=== PATIENT | male | born 1960 | race Hispanic/Latino ===

== ENCOUNTER 2020-09-22 12:27 | Inpatient (IN) | payer SELFPAY ==
[2020-09-22 12:59] LABS: #Lymphocytes 1.1 thou/uL (1.20-3.40); #Monocytes 0.5 thou/uL (0.11-0.59); #Neutrophils 10.3 thou/uL (1.40-6.50); %Basophils 0.2 % (0.0-1.0); %Eosinophils 0.4 % (0.0-10.0); %Lymphocytes 9.1 % (21.0-51.0); %Monocytes 4.3 % (0.0-10.0); Hemoglobin 11.7 g/dL (14.0-18.0); Mean Corpuscular HGB CONC 34.9 g/dL (32.0-36.0); Mean Corpuscular Hemoglobin 30.3 pg (27.0-31.0); Mean Corpuscular Volume 86.8 fL (78.0-98.0); Mean Platelet Volume 9.4 fL (7.4-10.4); Platelet Count 179 thou/uL (130-400); RBC Distribution Width 13.2 % (11.5-14.5); Red Blood Cell (RBC) Count 3.84 mill/uL (4.70-6.10)
[2020-09-22 13:19] LABS: ALT (SGPT) 24 U/L (8-55); AST (SGOT) 19 U/L (5-34); Albumin 4.3 g/dL (3.5-5.0); Alkaline Phosphatase 267 U/L (40-110); Anion Gap 17 mmol/L (10-20); BUN (Urea Nitrogen) 25 mg/dL (8.4-25.7); Bilirubin, Total 0.9 mg/dL (0.2-1.2); Calc. Creatinine Clearance 0 mL/min (70-130); Calcium 9.9 mg/dL (7.8-10.44); Carbon Dioxide 24 mmol/L (22-29); Chloride 95 mmol/L (98-107); Globulin 3.7 g/dL (2.4-3.5); Potassium 4.4 mmol/L (3.5-5.1); Sodium 132 mmol/L (136-145)
[2020-09-22 13:26] LABS: Glucose 656 mg/dL (70-105)
[2020-09-22 13:32] LABS: Bacteria/HPF 4+ HPF (None Seen); Bilirubin Negative (Negative); Blood, Urine 2+ (Negative); Clarity Turbid (Clear); Glucose, Urine (Dipstick) Greater than 1000 mg/dL (Negative); Ketone, Urine Negative (Negative); Leukocyte 500 Leu/uL (Negative); Nitrite Negative (Negative); Protein, Urine (Dipstick) 20 mg/dL (Neg-Trace); RBC/HPF 21-50 HPF (0-3); Specific Gravity, Urine 1.024 (1.002-1.036); Squamous Epithelial 0-3 HPF (0-3); Urobilinogen Normal mg/dL (Less than 2); WBC/HPF Greater than 50 HPF (0-3)
[2020-09-22 13:51] LABS: Actual Bicarbonate (HCO3v) 26 mEq/L (22-28); Base Excess 0.8 mEq/L (-2.0 to +3.0); Calcium, Ionized (venous) 1.13 mmol/L (1.16-1.32); Chloride (VBG) 95 mmol/L (98-106); Hemoglobin (Hb) 11.8 g/dL (13.1-17.2); Potassium (VBG) 4.29 mmol/L (3.70-5.30); Sodium 131.8 mmol/L (133-146); pH (venous) 7.41 (7.32-7.43)
[2020-09-22] MEDS ORDERED: cefTRIAXone\\ROCEPHIN 2 GM VIAL ONE (14:07)
[2020-09-22] MEDS ORDERED: Dextrose 5% in Water 1,000 ML IV PRN (15:44)
[2020-09-22] MEDS ORDERED: Dextrose 50% Abboject 50 ML SYRINGE SLOW IVP PRN (15:44)
[2020-09-22] MEDS ORDERED: Acetaminophen 325 MG TAB PO PRN (15:46)
[2020-09-22] MEDS ORDERED: Ondansetron PF 4 MG/2 ML Vial IVP PRN (15:46)
[2020-09-22] MEDS ORDERED: Ondansetron ODT 4 MG TAB PO PRN (15:46)
[2020-09-22] MEDS ORDERED: Senokot S 8.6-50 MG TAB PO PRN (15:46)
[2020-09-22] MEDS ORDERED: Calcium Carbonate 500 MG ChewTAB PO PRN (15:46)
[2020-09-22 16:20] LABS: Hemoglobin A1c 10.2 % (4.0-6.0)
[2020-09-22 16:39] LABS: Troponin I Less than 0.010 ng/mL (< 0.028)
[2020-09-22] MEDS ORDERED: Lantus 1000 UNITS/10 ML VIAL SC SCH (17:00)
[2020-09-22] MEDS: Sodium Chloride 0.9% 1,000 ML IV SCH ×2 (17:01→23:26)
[2020-09-22] MEDS: glipiZIDE 5 MG TAB PO SCH (17:02)
[2020-09-22 18:40] VITALS: BMI 32.5
[2020-09-22] MEDS: Insulin Regular 300 UNITS/3 ML VIAL SC PRN ×2 (20:40→23:25)
[2020-09-22] MEDS: Atorvastatin Calcium 40 MG TAB PO SCH (20:41)
[2020-09-23] MEDS: Insulin Regular 300 UNITS/3 ML VIAL SC PRN ×3 (04:28→17:00)
[2020-09-23] MEDS: Sodium Chloride 0.9% 1,000 ML IV SCH ×4 (04:31→17:03)
[2020-09-23 05:21] LABS: #Basophils 0.1 thou/uL (0.0-0.2); #Eosinphils 0.2 thou/uL (0.0-0.7); #Lymphocytes 2.1 thou/uL (1.20-3.40); #Monocytes 0.7 thou/uL (0.11-0.59); #Neutrophils 5.7 thou/uL (1.40-6.50); %Basophils 0.6 % (0.0-1.0); %Eosinophils 2.5 % (0.0-10.0); %Lymphocytes 24.2 % (21.0-51.0); %Monocytes 7.7 % (0.0-10.0); Hemoglobin 9.7 g/dL (14.0-18.0); Mean Corpuscular HGB CONC 34.6 g/dL (32.0-36.0); Mean Corpuscular Hemoglobin 30.3 pg (27.0-31.0); Mean Corpuscular Volume 87.7 fL (78.0-98.0); Platelet Count 144 thou/uL (130-400); RBC Distribution Width 13.1 % (11.5-14.5); Red Blood Cell (RBC) Count 3.19 mill/uL (4.70-6.10); White Blood Cell (WBC) Count 8.7 thou/uL (4.8-10.8)
[2020-09-23 05:47] LABS: Anion Gap 14 mmol/L (10-20); BUN (Urea Nitrogen) 16 mg/dL (8.4-25.7); Calc. Creatinine Clearance 96 mL/min (70-130); Calcium 9.2 mg/dL (7.8-10.44); Carbon Dioxide 23 mmol/L (22-29); Chloride 106 mmol/L (98-107); Glucose 252 mg/dL (70-105); Magnesium 1.7 mg/dL (1.6-2.6); Potassium 3.6 mmol/L (3.5-5.1); Sodium 139 mmol/L (136-145)
[2020-09-23] MEDS: glipiZIDE 5 MG TAB PO SCH (06:01)
[2020-09-23] MEDS ORDERED: Insulin Regular 300 UNITS/3 ML VIAL SC PRN (07:50)
[2020-09-23] MEDS ORDERED: Magnesium 2 GM/50 ML 2 GM in Premix Bag 1 BAG IVPB SCH (08:00)
[2020-09-23] MEDS: Potassium Chloride 20 MEQ TAB PO SCH ×2 (08:48→16:58)
[2020-09-23] MEDS ORDERED: Lantus 1000 UNITS/10 ML VIAL SC SCH ×2 (09:00→19:45)
[2020-09-23] MEDS ORDERED: Enoxaparin Sodium 40 MG/0.4 ML SYRINGE SC SCH (09:00)
[2020-09-23] MEDS ORDERED: cefTRIAXone\\ROCEPHIN 2 GM in Sodium Chloride 0.9% 100 ML IVPB SCH (11:00)
[2020-09-23] MEDS: glipiZIDE 10 MG TAB PO SCH (16:58)
[2020-09-23] MEDS: Atorvastatin Calcium 40 MG TAB PO SCH (21:00)
[2020-09-24] MEDS: Sodium Chloride 0.9% 1,000 ML IV SCH (00:46)
[2020-09-24] MEDS: Insulin Regular 300 UNITS/3 ML VIAL SC PRN ×2 (06:34→11:43)
[2020-09-24] MEDS: glipiZIDE 10 MG TAB PO SCH (06:34)
[2020-09-24 06:54] LABS: BUN (Urea Nitrogen) 11 mg/dL (8.4-25.7); Calc. Creatinine Clearance 99 mL/min (70-130); Calcium 8.7 mg/dL (7.8-10.44); Carbon Dioxide 20 mmol/L (22-29); Chloride 105 mmol/L (98-107); Glucose 308 mg/dL (70-105); Potassium 4.2 mmol/L (3.5-5.1); Sodium 135 mmol/L (136-145)
[2020-09-24 07:06] LABS: Anion Gap 15 mmol/L (10-20)
[2020-09-24] MEDS ORDERED: metFORMIN 500 MG TAB PO SCH (08:00)
[2020-09-24] MEDS ORDERED: cefTRIAXone\\ROCEPHIN 2 GM in Sodium Chloride 0.9% 100 ML IVPB SCH (08:00)
[2020-09-24] MEDS: Potassium Chloride 20 MEQ TAB PO SCH (08:13)
[2020-09-24 11:12] VITALS: BP 136/87; TEMP 98.2
== END 2020-09-24 12:08 | disposition home or self-care (01) | DRG 872 ==
LOC: ERS 12:27 → SURG A 15:05
PROVIDERS: ADMIT Internal Medicine; ATTEND Internal Medicine
DX: A41.51 Sepsis due to Escherichia coli [E. coli] (principal); N39.0 Urinary tract infection, site not specified; N17.9 Acute kidney failure, unspecified; E87.1 Hypo-osmolality and hyponatremia; E78.5 Hyperlipidemia, unspecified; R53.1 Weakness; E86.0 Dehydration; E66.9 Obesity, unspecified; D53.9 Nutritional anemia, unspecified; E11.65 Type 2 diabetes mellitus with hyperglycemia; E83.42 Hypomagnesemia; Z68.32 Body mass index [BMI] 32.0-32.9, adult
CPT/HCPCS: 36415; 36416; 71045; 80048; 80053; 81003; 81015; 82010; 82805; 83036; 83735; 84484; 85025; 87077; 87086; 87186; 94760; 96365; J0696; J1815; J3475; J3490